=== PATIENT | male | born 1965 | race Caucasian/White ===

== ENCOUNTER 2024-11-08 13:30 | Inpatient (IN) | payer OTHER ==
[2024-11-08 14:29] VITALS: BMI 22.7
[2024-11-08] MEDS ORDERED: ACETAMINOPHEN 325 MG TABLET (FP) PO PRN (14:51)
[2024-11-08] MEDS ORDERED: IBUPROFEN 600 MG TABLET (FP) PO PRN (14:51)
[2024-11-08] MEDS ORDERED: MAG HYDROX/AL HYDROX/SIMETH 30 ML UNIT-DOSE CUP PO PRN (14:51)
[2024-11-08] MEDS ORDERED: guaiFENesin 600 MG TABLET.ER (FP) PO PRN (14:51)
[2024-11-08] MEDS ORDERED: NICOTINE POLACRILEX 2 MG LOZENGE BC PRN (14:51)
[2024-11-08] MEDS ORDERED: LOPERAMIDE HCL 2 MG CAPSULE PO PRN (14:51)
[2024-11-08] MEDS ORDERED: ONDANSETRON *ODT* 4 MG TABLET SL PRN (14:51)
[2024-11-08] MEDS ORDERED: BENZOCAINE/MENTHOL (CHLORASEPTIC ) LOZENGE MM PRN (14:51)
[2024-11-08] MEDS ORDERED: P-EPHED 60MG/TRIPROLIDI 2.5MG TABLET PO PRN (14:51)
[2024-11-08] MEDS ORDERED: BENZONATATE 200 MG CAPSULE PO PRN (14:51)
[2024-11-08] MEDS ORDERED: BISMUTH SUBSALICYLATE 524 MG/30 ML PO PRN (14:51)
[2024-11-08] MEDS ORDERED: NICOTINE POLACRILEX 2 MG GUM BUC PRN (14:51)
[2024-11-08] MEDS ORDERED: POLYETHYLENE GLYCOL (HEALTHYLAX) 3350 17 GM PACKET PO PRN (14:51)
[2024-11-08] MEDS ORDERED: DICYCLOMINE HCL 10 MG CAPSULE PO PRN (14:51)
[2024-11-08] MEDS ORDERED: MAGNESIUM HYDROX 2400MG/30ML ORAL SUSPENSION 30 ML CUP PO PRN (14:51)
[2024-11-08] MEDS ORDERED: IBUPROFEN 400 MG TABLET (FP) PO PRN (14:51)
[2024-11-08] MEDS: chlordiazePOXIDE HCL 25 MG CAPSULE PO SCH (17:49)
[2024-11-08] MEDS: THIAMINE 100 MG TABLET PO SCH (22:20)
[2024-11-08] MEDS: MELATONIN 5 MG TABLETS PO SCH (22:20)
[2024-11-09] MEDS: PRENATAL VITAMINS W/ FOLIC ACID TABLET (FP) PO SCH (10:25)
[2024-11-09 14:31] LABS: CHLORIDE 106 mmol/L (98-107); POTASSIUM 4.2 mmol/L (3.5-5.1); SODIUM 139 mmol/L (136-145)
[2024-11-09 14:35] LABS: ALBUMIN 3.5 g/dl (3.4-5.0); ANION GAP 4 mmol/L (4-13); BLOOD UREA NITROGEN 22.8 mg/dL (7-18); CALCIUM 9.2 mg/dL (8.5-10.1); CO2 29 mmol/L (21-32); GLUCOSE,RANDOM 109 mg/dL (74-106)
[2024-11-09 14:36] LABS: HEMATOCRIT 38.4 % (35.4-49); HEMOGLOBIN 12.6 GM/dL (11.7-16.9); MCH 31.7 pg (25.7-33.7); MCHC 32.8 g/dl (32.0-35.9); MEAN CELL VOLUME 96.7 fl (80-96); MEAN PLT VOLUME 7.6 fl (7.5-11.1); PLATELET COUNT 194 10^3/uL (134-434); RBC 3.97 M/mm3 (4.00-5.60); RDW 17.4 % (11.9-15.9); WHITE BLOOD COUNT 7.1 K/mm3 (4.0-10.0)
[2024-11-09 14:38] LABS: SGOT/AST 19 U/L (15-37); SGPT/ALT 31 U/L (13-61)
[2024-11-09 14:40] LABS: BILIRUBIN,TOTAL 0.4 mg/dL (0.2-1); TOT PROT 6.6 g/dl (6.4-8.2)
[2024-11-09 14:41] LABS: ALK PHOS 143 U/L (45-117)
[2024-11-09] MEDS: chlordiazePOXIDE HCL 25 MG CAPSULE PO PRN (15:01)
[2024-11-09] MEDS: hydrOXYzine PAMOATE 25 MG CAPSULE (FP) PO PRN (15:05)
[2024-11-10] MEDS: chlordiazePOXIDE HCL 25 MG CAPSULE PO SCH (05:43)
[2024-11-10] MEDS: METHOCARBAMOL 500 MG TABLET PO PRN (22:17)
[2024-11-11] MEDS ORDERED: chlordiazePOXIDE HCL 10 MG CAPSULE PO PRN
[2024-11-11] MEDS: chlordiazePOXIDE HCL 10 MG CAPSULE PO SCH (05:30)
[2024-11-12] MEDS: chlordiazePOXIDE HCL 10 MG CAPSULE PO SCH (05:31)
[2024-11-12 21:09] VITALS: RESP 18
[2024-11-13] MEDS: chlordiazePOXIDE HCL 10 MG CAPSULE PO ONE (05:31)
[2024-11-13 09:13] VITALS: BP 107/67; PULSE 80; TEMP 98.6
== END 2024-11-13 10:06 | disposition home or self-care (01) | DRG 775 ==
LOC: YASAS 13:30 → Y6N 16:20
PROVIDERS: ADMIT Allergy & Immunology; ATTEND Allergy & Immunology
PROC: HZ2ZZZZ Detoxification Services for Substance Abuse Treatment (ICD-10-PCS; principal; 2024-11-08)
DX: F10.230 Alcohol dependence with withdrawal, uncomplicated (principal); F17.210 Nicotine dependence, cigarettes, uncomplicated; F10.282 Alcohol dependence with alcohol-induced sleep disorder; F10.24 Alcohol dependence with alcohol-induced mood disorder; Z56.0 Unemployment, unspecified; Z59.00 Homelessness unspecified
CPT/HCPCS: 36415; 80053; 80305; 80307; 85027; 86780; 93005; 93010

== ENCOUNTER 2024-12-10 01:09 | Inpatient (IN) | payer OTHER ==
[2024-12-10 01:58] VITALS: BMI 22.7
[2024-12-10] MEDS ORDERED: BENZOCAINE/MENTHOL (CHLORASEPTIC ) LOZENGE MM PRN (02:26)
[2024-12-10] MEDS ORDERED: MAGNESIUM HYDROX 2400MG/30ML ORAL SUSPENSION 30 ML CUP PO PRN (02:26)
[2024-12-10] MEDS ORDERED: NALOXONE (NARCAN) HCL 4 MG/0.1 ML SPRAY NS PRN (02:26)
[2024-12-10] MEDS ORDERED: BENZONATATE 200 MG CAPSULE PO PRN (02:26)
[2024-12-10] MEDS ORDERED: POLYETHYLENE GLYCOL (HEALTHYLAX) 3350 17 GM PACKET PO PRN (02:26)
[2024-12-10] MEDS ORDERED: LOPERAMIDE HCL 2 MG CAPSULE PO PRN (02:26)
[2024-12-10] MEDS ORDERED: MAG HYDROX/AL HYDROX/SIMETH 30 ML UNIT-DOSE CUP PO PRN (02:26)
[2024-12-10] MEDS ORDERED: guaiFENesin 600 MG TABLET.ER (FP) PO PRN (02:26)
[2024-12-10] MEDS ORDERED: NICOTINE POLACRILEX 2 MG GUM BUC PRN (02:26)
[2024-12-10] MEDS ORDERED: IBUPROFEN 400 MG TABLET (FP) PO PRN (02:26)
[2024-12-10] MEDS ORDERED: ACETAMINOPHEN 325 MG TABLET (FP) PO PRN (02:26)
[2024-12-10] MEDS ORDERED: BISMUTH SUBSALICYLATE 524 MG/30 ML PO PRN (02:26)
[2024-12-10] MEDS ORDERED: ONDANSETRON *ODT* 4 MG TABLET SL PRN (02:26)
[2024-12-10] MEDS ORDERED: DICYCLOMINE HCL 10 MG CAPSULE PO PRN (02:26)
[2024-12-10] MEDS: chlordiazePOXIDE HCL 25 MG CAPSULE PO SCH (04:54)
[2024-12-10] MEDS: PRENATAL VITAMINS W/ FOLIC ACID TABLET (FP) PO SCH (10:27)
[2024-12-10] MEDS: NICOTINE 14 MG/24 HOURS TOPICAL PATCH TD SCH (10:28)
[2024-12-10] MEDS: hydrOXYzine PAMOATE 25 MG CAPSULE (FP) PO PRN ×2 (10:33→22:22)
[2024-12-10] MEDS: IBUPROFEN 600 MG TABLET (FP) PO PRN (14:11)
[2024-12-10] MEDS: MELATONIN 5 MG TABLETS PO SCH (22:22)
[2024-12-10] MEDS: THIAMINE 100 MG TABLET PO SCH (22:22)
[2024-12-10] MEDS: traZODone HCL 50 MG TABLET (FP) PO SCH (22:22)
[2024-12-11] MEDS: chlordiazePOXIDE HCL 25 MG CAPSULE PO PRN (05:35)
[2024-12-11] MEDS: chlordiazePOXIDE HCL 25 MG CAPSULE PO SCH (05:37)
[2024-12-11 10:06] LABS: POTASSIUM 3.8 mmol/L (3.5-5.1)
[2024-12-11 10:07] LABS: HEMATOCRIT 41.5 % (35.4-49); HEMOGLOBIN 13.5 GM/dL (11.7-16.9); MCH 31.3 pg (25.7-33.7); MCHC 32.7 g/dl (32.0-35.9); MEAN CELL VOLUME 95.9 fl (80-96); MEAN PLT VOLUME 8.1 fl (7.5-11.1); PLATELET COUNT 202 10^3/uL (134-434); RBC 4.32 M/mm3 (4.00-5.60); RDW 15.7 % (11.9-15.9); WHITE BLOOD COUNT 7.5 K/mm3 (4.0-10.0)
[2024-12-11 10:12] LABS: CALCIUM 8.7 mg/dL (8.5-10.1)
[2024-12-11 10:13] LABS: ALBUMIN 3.2 g/dl (3.4-5.0); BLOOD UREA NITROGEN 20.2 mg/dL (7-18)
[2024-12-11 10:18] LABS: BILIRUBIN,TOTAL 0.5 mg/dL (0.2-1)
[2024-12-11] MEDS: METHOCARBAMOL 500 MG TABLET PO PRN (19:48)
[2024-12-12] MEDS ORDERED: chlordiazePOXIDE HCL 10 MG CAPSULE PO PRN
[2024-12-12] MEDS: chlordiazePOXIDE HCL 10 MG CAPSULE PO SCH (05:25)
[2024-12-13] MEDS: chlordiazePOXIDE HCL 10 MG CAPSULE PO SCH (05:26)
[2024-12-13] MEDS: NALTREXONE HCL 50 MG TABLET PO SCH (13:09)
[2024-12-14] MEDS: chlordiazePOXIDE HCL 10 MG CAPSULE PO ONE (05:44)
[2024-12-14 09:25] VITALS: BP 113/73; PULSE 89; RESP 16; TEMP 98
== END 2024-12-14 13:30 | disposition other institution (70) | DRG 775 ==
LOC: YASAS 01:09 → Y3N 05:17 → Y6N 09:10
PROVIDERS: ADMIT Allergy & Immunology; ATTEND Allergy & Immunology
PROC: HZ2ZZZZ Detoxification Services for Substance Abuse Treatment (ICD-10-PCS; principal; 2024-12-10)
DX: F10.230 Alcohol dependence with withdrawal, uncomplicated (principal); F17.210 Nicotine dependence, cigarettes, uncomplicated; F10.282 Alcohol dependence with alcohol-induced sleep disorder; F10.24 Alcohol dependence with alcohol-induced mood disorder; F32.A Depression, unspecified; F41.9 Anxiety disorder, unspecified; Z59.01 Sheltered homelessness
CPT/HCPCS: 0241U-QW; 36415; 80053; 80305; 80307; 85027; 86780; 87811; 93005; 93010